=== PATIENT | female | born 1960 | race Hispanic/Latino ===

== ENCOUNTER 2019-08-30 15:01 | Emergency (ER) | payer SELFPAY | END 2019-08-30 15:28 | disposition home or self-care (01) | LOC: ERS 15:01 → MERGE 15:01 → ERS 15:28 | DX: R19.7 Diarrhea, unspecified (principal); I10 Essential (primary) hypertension; F31.9 Bipolar disorder, unspecified; B19.20 Unspecified viral hepatitis C without hepatic coma | CPT/HCPCS: 99283 ==